=== PATIENT | female | born 2000 | race Two or more races ===

== ENCOUNTER 2022-09-15 13:47 | Inpatient (IN) | payer OTHER ==
[~2022-09-15] VITALS: Ht 160 cm; Wt 89.8 kg
[2022-09-21] MEDS ORDERED: PRENATAL TABLE1 EAC1 (21:48)
== END 2022-09-28 11:36 | disposition home or self-care (01) | DRG 788 ==
LOC: EDSTATUS 14:15 → LDR 09-21 20:56 → OB/GYN 09-22 21:45
PROVIDERS: ADMIT Obstetrics & Gynecology; ATTEND Obstetrics & Gynecology
PROC: 10D00Z1 Extraction of Products of Conception, Low, Open Approach (ICD-10-PCS; principal; 2022-09-22 20:00)
PROC: 4A1HXCZ Monitoring of Products of Conception, Cardiac Rate, External Approach (ICD-10-PCS; 2022-09-23)
DX: O33.8 Maternal care for disproportion of other origin (principal); Z3A.39 39 weeks gestation of pregnancy; Z37.0 Single live birth; Z20.822 Contact with and (suspected) exposure to COVID-19